=== PATIENT | male | born 1935 | race Caucasian/White ===

== ENCOUNTER 2018-05-08 11:22 | Inpatient (IN) ==
[2018-05-08] MEDS ORDERED: ceFAZolin 2 GM Premix Inj 2 GM/50 ML PIGGYBACK IV.SIG PRN (12:04)
[2018-05-08] MEDS ORDERED: Sodium Chloride 0.9% 2 ML Flush PRN IV.FLUSH (12:09)
[2018-05-08] MEDS ORDERED: Sodium Chlor 0.9% Inj 500 ML IV.CONT ONE (12:15)
[2018-05-08] MEDS ORDERED: Metoprolol Tartrate 25 MG Tablet PO ONE (12:15)
[2018-05-08] MEDS ORDERED: Chlorhexidine Gluconate 2% 1 Pack (2 Cloths) TOPICAL ONE (12:15)
[2018-05-08 12:30] LABS: INR 1.1 Ratio; Prothrombin Time 11.3 sec (9.8-11.6)
[2018-05-08] MEDS ORDERED: Phenylephrine/NS 1000 MCG/10ML Syringe IV.PUSH ONE (14:15)
[2018-05-08] MEDS ORDERED: Labetalol HCl Inj 100 MG/20 ML Vial IV.CONT ONE (14:15)
--- NOTE | 2018-05-08 15:11 | ECG ---
Date Performed: 05/08/2018 Time Performed: 12:33:25 PTAGE: 83 years EKG: ATRIAL FIBRILLATION WITH ABERRANT CONDUCTION OR VENTRICULAR PREMATURE COMPLEXES ANTERIOR MY OCARDIAL INFARCTION , PROBABLY OLD POSSIBLE INFERIOR MYOCARDIAL INFARCTION , PROBABLY OLD ABNORMAL EC G NO PREVIOUS TRACING DOCTOR: [place] Interpretating Date/Time 05/08/2018 15:09:06
[2018-05-08] MEDS ORDERED: fentaNYL Citrate Inj 100 MCG/2 ML Ampul ONE (18:59)
[2018-05-08] MEDS ORDERED: Sugammadex Inj 200 MG/2 ML Vial IV.PUSH ONE (19:00)
[2018-05-08] MEDS ORDERED: *morphine SULFATE 4 MG/ML PERIprocedure ONLY ONE ×2 (19:09→19:19)
[2018-05-08] MEDS: Pantoprazole Inj 40 MG Vial IV.PUSH SCH (19:11)
[2018-05-08 19:14] LABS: Baso # (Auto) 0.1 th/mm3 (0.0-0.2); Baso % (Auto) 0.4 % (0.0-2.0); Eos % (Auto) 0.2 % (0.0-4.0); Hematocrit 38.5 % (39.0-51.0); Hemoglobin 12.8 gm/dL (13.0-17.0); Lymph # (Auto) 0.7 th/mm3 (1.0-4.8); Lymph % (Auto) 4.3 % (9.0-44.0); Mean Corpuscular HGB Conc 33.3 % (32.0-36.0); Mean Corpuscular Hemoglobin 29.6 pg (27.0-34.0); Mean Corpuscular Volume 88.9 fL (80.0-100.0); Mean Platelet Volume 9.8 fL (7.0-11.0); Mono # (Auto) 1.2 th/mm3 (0.0-0.9); Mono % (Auto) 7.7 % (0.0-8.0); Neut # (Auto) 14.1 th/mm3 (1.8-7.7); Neut % (Auto) 87.4 % (16.0-70.0); Platelet Count 171 th/mm3 (150-450); Red Blood Count 4.33 mil/mm3 (4.50-5.90); Red Cell Distribution Width 13.9 % (11.6-17.2); White Blood Count 16.1 th/mm3 (4.0-11.0)
[2018-05-08] MEDS: Sodium Chlor 0.9% Inj 1,000 ML IV.SIG SCH (19:15)
[2018-05-08 19:26] LABS: Calcium 8.5 mg/dL (8.5-10.1); Carbon Dioxide 20.8 meq/L (21.0-32.0)
[2018-05-08] MEDS ORDERED: *Promethazine Inj 25 MG/ML Vial PERIprocedural use ONLY ONE (19:34)
[2018-05-08] MEDS: Docusate Sodium 100 MG Capsule PO SCH (20:58)
[2018-05-08] MEDS: Sodium Chloride 0.9% 2 ML Flush BID IV.FLUSH SCH (20:59)
[2018-05-08] MEDS: Morphine Inj 4 MG/ML Vial IV.PUSH PRN (22:57)
[2018-05-09] MEDS: Morphine Inj 4 MG/ML Vial IV.PUSH PRN (03:47)
[2018-05-09] MEDS: Sodium Chlor 0.9% Inj 1,000 ML IV.SIG SCH ×2 (04:33→18:56)
[2018-05-09 07:43] LABS: Hematocrit 36.6 % (39.0-51.0); Hemoglobin 12.4 gm/dL (13.0-17.0); Mean Corpuscular HGB Conc 33.9 % (32.0-36.0); Mean Corpuscular Hemoglobin 30.6 pg (27.0-34.0); Mean Corpuscular Volume 90.3 fL (80.0-100.0); Mean Platelet Volume 9.8 fL (7.0-11.0); Platelet Count 134 th/mm3 (150-450); Red Blood Count 4.06 mil/mm3 (4.50-5.90); White Blood Count 13.8 th/mm3 (4.0-11.0)
[2018-05-09 08:01] LABS: Calcium 8.1 mg/dL (8.5-10.1); Carbon Dioxide 22.4 meq/L (21.0-32.0); Potassium 4.9 meq/L (3.5-5.1)
[2018-05-09] MEDS: Docusate Sodium 100 MG Capsule PO SCH ×2 (08:39→20:58)
[2018-05-09] MEDS: Metoprolol Tartrate 25 MG Tablet PO SCH (08:39)
--- NOTE | 2018-05-09 11:01 | P.PNURO ---
Subjective Patient symptoms today: c/o incisional pain. Has not been OOB. Denies CP/SOB/F/C/N/V. Denies flatus. Tolerating some clears. Objective Vital Signs: Vital Signs 05/08/18 11:59 05/08/18 18:45 05/08/18 19:00 Temperature 97.4 F L 97.4 F L Pulse Rate 70 81 73 Respiratory Rate 18 16 22 Blood Pressure 189/92 H 88/51 L 144/70 H Pulse Oximetry 99 95 99 05/08/18 19:15 05/08/18 19:30 05/08/18 19:45 Temperature Pulse Rate 69 75 74 Respiratory Rate 20 18 16 Blood Pressure 154/62 H 138/81 157/67 H Pulse Oximetry 98 100 97 05/08/18 20:00 05/08/18 21:00 05/08/18 22:02 Temperature 98 F Pulse Rate 78 72 74 Respiratory Rate 16 Blood Pressure 124/77 Pulse Oximetry 05/09/18 00:00 05/09/18 01:00 05/09/18 02:00 Temperature 98.2 F Pulse Rate 90 88 83 Respiratory Rate 18 Blood Pressure 156/70 H Pulse Oximetry 05/09/18 03:00 05/09/18 04:00 05/09/18 05:00 Temperature 97.8 F Pulse Rate 85 86 84 Respiratory Rate 18 Blood Pressure 124/77 Pulse Oximetry 05/09/18 05:57 05/09/18 06:00 05/09/18 07:00 Temperature Pulse Rate 80 80 100 H Respiratory Rate Blood Pressure Pulse Oximetry 05/09/18 08:00 Temperature 98.2 F Pulse Rate Respiratory Rate 18 Blood Pressure 146/78 H Pulse Oximetry 98 Intake & Output 05/08/18 05/09/18 05/09/18 18:59 06:59 18:59 Intake Total 2550 / 2550 1855 / 1855 Output Total 250 / 250 475 / 475 Balance 2300 / 2300 1380 / 1380 Weight 77.4 kg 108.9 kg Intake: IV 1050 / 1050 1100 / 1100 LR 1000 mL Inj 1,000 ML @ 30 1000 / 1000 mls/hr IV.CONT .Q24H ONE Rx#: [id number] NS Inj 1,000 ML @ 125 mls/hr IV 1000 / 1000 .SIG .Q10H [facility] Rx#:[id number] Ancef 2 GM Premix Inj 2 gm In 50 / 50 50 ml @ 100 mls/hr IV.SIG PIPE FOREMAN PRN Rx#:[id number] Ancef Inj 1,000 MG In NS Inj 100 / 100 100 ML @ 200 mls/hr IV.SIG Q8H [facility] Rx#:[id number] Oral 480 / 480 Anesthesia Amount 1500 / 1500 275 / 275 Output: Urine 400 / 400 Stool 0 / 0 Estimated Blood Loss 100 / 100 Urine Amount (Catheter) 150 / 150 75 / 75 Indwelling Urethral Catheter 150 / 150 75 / 75 Other: Weight On Admission 77.4 kg Result Diagrams: 05/09/18 07:17 05/09/18 07:17 Medications and IVs: Active Medications Generic Name Dose Route Start Last Admin Trade Name Freq PRN Reason Stop Dose Admin Docusate Sodium 100 mg 05/08/18 21:00 05/09/18 08:39 Colace PO Not Given BID [facility] Cefazolin Sodium/Dextrose 2 gm in 50 mls @ 100 mls/hr 05/08/18 12:04 17:22 Ancef 2 Gm Premix Inj IV.SIG 05/12/18 12:03 Infused PIPE FOREMAN PRN Infusion ON-CALL Lactated Ringer's 1,000 mls @ 30 mls/hr 05/08/18 12:15 05/08/18 18:42 Lr 1000 Ml Inj IV.CONT 05/09/18 12:14 Infused .Q24H ONE Infusion Sodium Chloride 1,000 mls @ 125 mls/hr 05/08/18 18:00 05/09/18 04:33 Ns Inj IV.SIG 125 mls/hr .Q10H [facility] Administration Levothyroxine Sodium 37.5 mcg 05/09/18 06:00 05/09/18 05:17 Synthroid PO 37.5 mcg DAILY@0600 [facility] Administration Metoprolol Tartrate 25 mg 05/09/18 09:00 05/09/18 08:39 Lopressor PO 25 mg DAILY [facility] Administration Miscellaneous Information 1 each 05/08/18 18:47 Misc Nursing Information OTHER 05/09/18 18:46 UNSCH PRN SEE LABEL COMMENTS Morphine Sulfate 4 mg 05/08/18 17:56 05/09/18 03:47 Morphine Inj IV.PUSH 4 mg Q4H PRN Administration BREAKTHROUGH PAIN Nitroglycerin 1 patch 05/08/18 21:00 05/08/18 21:00 Nitro-Dur 0.1 Mg Patch.24 Hr T-DERMAL 1 patch HS [facility] Administration Ondansetron HCl 4 mg 05/08/18 17:58 05/08/18 22:57 Zofran Inj IV.PUSH 4 mg Q6H PRN Administration NAUSEA OR VOMITING Oxycodone/Acetaminophen 2 tab 05/08/18 17:55 Percocet 5/325 Mg PO Q4H PRN PAIN SCALE 6 TO 10 Oxycodone/Acetaminophen 1 tab 05/08/18 18:03 Percocet 5/325 Mg PO Q4H PRN PAIN SCALE 3 TO 5 Pantoprazole Sodium 40 mg 05/08/18 18:00 05/08/18 19:11 Protonix Inj IV.PUSH 40 mg Q24H [facility] Administration Pravastatin Sodium 40 mg 05/08/18 20:00 05/08/18 20:58 Pravachol PO 40 mg QPM [facility] Administration Sodium Chloride 2 ml 05/08/18 21:00 05/08/18 20:59 Ns Flush IV.FLUSH Not Given BID [facility] Sodium Chloride 2 ml 05/08/18 12:09 Ns Flush IV.FLUSH PRN PRN FLUSH AFTER USING IV ACCESS Objective Remarks: NAD. A/O x 3 CTAB RRR abd soft, appropriately tender. Inc c/d/i. Urine clear, yellow Ext NT. No edema. Assessment and Plan - Plan POD #1 Right Robotic Radical Nephrectomy -Doing well. -Hgb stable. Good UOP -OOB today. -d/c lee once ambulatory -GI/DVT prophylaxis -Labs in A.M. -Regular diet in A.M. -Plavix on hold.
[2018-05-09] MEDS: Sodium Chloride 0.9% 2 ML Flush BID IV.FLUSH SCH ×2 (13:15→20:58)
[2018-05-09] MEDS: Pantoprazole Inj 40 MG Vial IV.PUSH SCH (18:56)
[2018-05-10] MEDS: Sodium Chlor 0.9% Inj 1,000 ML IV.SIG SCH (03:15)
[2018-05-10 06:39] LABS: Hematocrit 35.8 % (39.0-51.0); Hemoglobin 12.1 gm/dL (13.0-17.0); Mean Corpuscular HGB Conc 33.7 % (32.0-36.0); Mean Corpuscular Hemoglobin 30.3 pg (27.0-34.0); Mean Corpuscular Volume 90.1 fL (80.0-100.0); Platelet Count 133 th/mm3 (150-450); Red Blood Count 3.98 mil/mm3 (4.50-5.90); White Blood Count 11.9 th/mm3 (4.0-11.0)
[2018-05-10 06:56] LABS: Calcium 8.5 mg/dL (8.5-10.1); Carbon Dioxide 21.7 meq/L (21.0-32.0); Potassium 4.3 meq/L (3.5-5.1)
[2018-05-10] MEDS: Docusate Sodium 100 MG Capsule PO SCH ×2 (08:06→12:58)
[2018-05-10] MEDS: Metoprolol Tartrate 25 MG Tablet PO SCH (08:06)
[2018-05-10] MEDS: Sodium Chloride 0.9% 2 ML Flush BID IV.FLUSH SCH (08:06)
[2018-05-10 08:41] VITALS: RESP 18
--- NOTE | 2018-05-10 09:41 | P.PNURO ---
Subjective Patient symptoms today: doing well. has minimal pain. voiding on own. ambulating. Tolerating regular diet. Denies CP/SOB. Wants to go home. Objective Vital Signs: Vital Signs 05/09/18 10:00 05/09/18 11:00 05/09/18 12:00 Temperature 98.3 F Pulse Rate 98 H 84 110 H Respiratory Rate 18 Blood Pressure 140/67 Pulse Oximetry 97 05/09/18 13:00 05/09/18 14:00 05/09/18 15:00 Temperature Pulse Rate 82 88 85 Respiratory Rate Blood Pressure Pulse Oximetry 05/09/18 16:00 05/09/18 17:00 05/09/18 18:00 Temperature 98.2 F Pulse Rate 88 92 H 95 H Respiratory Rate 18 Blood Pressure 175/82 H Pulse Oximetry 97 05/09/18 19:00 05/09/18 20:00 05/09/18 21:00 Temperature 97.6 F Pulse Rate 102 H 94 H 102 H Respiratory Rate 16 Blood Pressure 163/77 H Pulse Oximetry 92 L 05/09/18 22:00 05/09/18 23:00 05/10/18 00:00 Temperature 98 F Pulse Rate 98 H 98 H 104 H Respiratory Rate 18 Blood Pressure 169/93 H Pulse Oximetry 94 L 05/10/18 01:00 05/10/18 02:00 05/10/18 03:00 Temperature Pulse Rate 90 93 H 97 H Respiratory Rate Blood Pressure Pulse Oximetry 05/10/18 04:00 05/10/18 05:00 05/10/18 06:00 Temperature 97.9 F Pulse Rate 94 H 88 82 Respiratory Rate 20 Blood Pressure 123/68 Pulse Oximetry 95 05/10/18 07:00 05/10/18 08:00 05/10/18 09:00 Temperature 98.4 F Pulse Rate 102 H 84 88 Respiratory Rate 18 Blood Pressure 136/88 Pulse Oximetry 95 Intake & Output 05/09/18 05/10/18 05/10/18 18:59 06:59 18:59 Intake Total 1700 / 1700 1480 / 1480 Output Total 1565 / 1565 900 / 900 Balance 135 / 135 580 / 580 Weight 108.2 kg Intake: IV 1100 / 1100 1000 / 1000 NS Inj 1,000 ML @ 125 mls/hr IV 1000 / 1000 1000 / 1000 .SIG .Q10H [facility] Rx#:[id number] Oral 600 / 600 480 / 480 Output: Urine 315 / 315 900 / 900 Stool 0 / 0 Urine Amount (Catheter) 1250 / 1250 Indwelling Urethral Catheter 1250 / 1250 Other: # Voids 2 # Bowel Movements 0 0 Result Diagrams: 05/10/18 06:07 05/10/18 06:07 Medications and IVs: Active Medications Generic Name Dose Route Start Last Admin Trade Name Freq PRN Reason Stop Dose Admin Docusate Sodium 100 mg 05/08/18 21:00 05/10/18 08:06 Colace PO Not Given BID [facility] Cefazolin Sodium/Dextrose 2 gm in 50 mls @ 100 mls/hr 05/08/18 12:04 17:22 Ancef 2 Gm Premix Inj IV.SIG 05/12/18 12:03 Infused A CLASS LINEMAN PRN Infusion ON-CALL Sodium Chloride 1,000 mls @ 125 mls/hr 05/08/18 18:00 05/10/18 03:15 Ns Inj IV.SIG 125 mls/hr .Q10H [facility] Administration Levothyroxine Sodium 37.5 mcg 05/09/18 06:00 05/10/18 06:15 Synthroid PO 37.5 mcg DAILY@0600 [facility] Administration Metoprolol Tartrate 25 mg 05/09/18 09:00 05/10/18 08:06 Lopressor PO 25 mg DAILY [facility] Administration Morphine Sulfate 4 mg 05/08/18 17:56 05/09/18 03:47 Morphine Inj IV.PUSH 4 mg Q4H PRN Administration BREAKTHROUGH PAIN Nitroglycerin 1 patch 05/08/18 21:00 05/09/18 20:58 Nitro-Dur 0.1 Mg Patch.24 Hr T-DERMAL 1 patch HS [facility] Administration Ondansetron HCl 4 mg 05/08/18 17:58 05/09/18 22:38 Zofran Inj IV.PUSH 4 mg Q6H PRN Administration NAUSEA OR VOMITING Oxycodone/Acetaminophen 2 tab 05/08/18 17:55 05/09/18 22:38 Percocet 5/325 Mg PO 2 tab Q4H PRN Administration PAIN SCALE 6 TO 10 Oxycodone/Acetaminophen 1 tab 05/08/18 18:03 Percocet 5/325 Mg PO Q4H PRN PAIN SCALE 3 TO 5 Pantoprazole Sodium 40 mg 05/08/18 18:00 05/09/18 18:56 Protonix Inj IV.PUSH 40 mg Q24H [facility] Administration Pravastatin Sodium 40 mg 05/08/18 20:00 05/09/18 18:56 Pravachol PO 40 mg QPM [facility] Administration Sodium Chloride 2 ml 05/08/18 21:00 05/10/18 08:06 Ns Flush IV.FLUSH 2 ml BID [facility] Administration Sodium Chloride 2 ml 05/08/18 12:09 Ns Flush IV.FLUSH PRN PRN FLUSH AFTER USING IV ACCESS Objective Remarks: NAD. A/O x 3 CTAB RRR abd soft, appropriately tender. Inc c/d/i. Ext NT. No edema. Assessment and Plan - Plan POD #2 Right Robotic Radical Nephrectomy -Doing well. -Hgb stable. -Regular diet -Ambulate, IS. -likely home later today. -Restart Plavix 05/11/2018 -F/U in office 1 week.
[2018-05-10 12:32] VITALS: O2SAT 93
[2018-05-10 16:18] VITALS: BP 179/88; PULSE 116; TEMP 97.9
--- NOTE | 2018-05-12 13:47 | MP ---
cc: Leno Valladares MD DATE OF OPERATION: 05/08/2018 PREOPERATIVE DIAGNOSES: 1. A 6 cm solid right renal mass. 2. History of coronary artery disease, status post coronary artery bypass grafting. POSTOPERATIVE DIAGNOSES: 1. A 6 cm solid right renal mass. 2. History of coronary artery disease, status post coronary artery bypass grafting. PROCEDURE PERFORMED: Robotic-assisted laparoscopic right radical nephrectomy. SURGEON: Leno Valladares MD ANESTHESIA: General. COMPLICATIONS: None. PREOPERATIVE ANTIBIOTICS: Ancef 1 gram. SPECIMENS: Right kidney for permanent. ESTIMATED BLOOD LOSS: 100 mL. FLUIDS: 2500 of crystalloid per anesthesia. DISPOSITION: Stable to recovery. INDICATIONS: The patient is an 83-year-old man who was found to have a large 6 cm incidental right lower pole renal mass. Treatment options were discussed and he elected to proceed with right robotic partial, possible right radical nephrectomy. He did receive cardiac clearance and his Plavix has been on hold for 5 days. After the risks, benefits and alternatives were explained to the patient including the risk of renal failure, dialysis, loss of the entire kidney, the patient elected to proceed. Informed consent was obtained. DETAILS OF PROCEDURE: The patient was properly identified and brought back to the operating room and laid supine on the operating table. Appropriate timeout was performed. Under the direction of anesthesiology, the patient was intubated and induced under general anesthetic. Appropriate preoperative antibiotics were given within 1 hour of the start of procedure. The patient was then placed in the left lateral decubitus position with the right side and all pressure points were padded after a Chapman catheter was placed. The patient was then prepped and draped in normal sterile surgical fashion. A stab incision was made superior and lateral to the umbilicus. A Veress needle was used to gain access to the abdominal cavity. Pneumoperitoneum was then achieved. The stab incision was extended to approximately 2 cm. A 12 mm camera port was then placed under direct visualization into the intra-abdominal cavity. The abdominal cavity was carefully inspected. There was no evidence of intra-abdominal entry including bleeding. At this time, 4 other remaining ports were then placed under direct visualization, including two 8 mm robotic ports triangulated off the camera port, a 5 mm port in the midline just below the xiphoid process as well as a 12 mm mechanic's assistant port inferior to the umbilicus in the midline. Once all ports were placed, the robot was then brought into position. There were some minor adhesions to the anterior abdominal wall, which were taken down with blunt dissection and cold scissors. At this time, the colon was reflected medially by taking down the white line of Toldt, which exposed the retroperitoneum. Through careful dissection, I came across the duodenum. Due to this large renal mass, this area was very inflamed with a significant amount of parasitic vessels. These were controlled with bipolar electrocautery. I carefully kocherized the duodenum to expose the inferior vena cava. I followed the inferior cannula caudally until I found the gonadal vein inserting into the IVC. I carefully developed a plane between the gonadal vein and the IVC where the psoas muscle was identified. Through careful dissection, I then identified the ureter as well. I then carefully dissected up the psoas muscle off the IVC until I came across the renal hilum. Two renal arteries and 2 renal veins were identified including 1 renal artery directly posterior to the renal vein. It was in a quite difficult position. At this point, decided to see if a partial nephrectomy was feasible. I carefully started to remove the perinephric fat to expose the capsule of the kidney; however, the tumor was significantly enlarged and appeared to be invasive and encompassing a large part of and almost the lower half of the entire kidney. At this point, I did not feel like a partial nephrectomy was feasible due to potential blood loss and negative margins. Therefore, at this point, I decided to remove the whole kidney. At this time, I then was able to take the lower pole renal vein with an endovascular GI stapler; however, I was unable to significantly gain traction. Therefore, I had to ligate the right gonadal vein with the robotic vessel sealer. At this point, there remained 2 arteries and 1 vein. The lower pole artery was easy to access and was carefully dissected circumferentially and was taken to the endovascular GI stapler. The other renal artery was posterior to the vein and I could not see an adequate plane; however, I was able to dissect around both the artery and anterior to the vein and there was a small window. Therefore, I decided to take both the second artery and vein together and the endovascular JOAQUIN stapler was used to do this. At this point, the renal hilum was completely divided and there was no evidence of any bleeding. The lateral and superior attachments were then divided with a combination of blunt dissection and electrocautery. At this point, the ureter remained the only thing intact and this was divided with the robotic vessel sealer. At this point, the kidney was then placed in an EndoCatch bag for later removal. The adrenal bed and renal fossa were then irrigated out. Electrocautery was used for hemostasis. Then, 5 mL of Evicel was used for hemostatic purposes. The renal fossa and adrenal bed appeared to be dry. Pneumoperitoneum was dropped down to 7 mmHg and there was no evidence of any bleeding. The liver remained intact. At this point, the robot was then undocked. I then extracted the kidney through the right lower quadrant incision after extending the incision. That incision was then closed in 2 layers with 3-0 Vicryl for the peritoneum and 1-0 PDS for the fascia. A second look was then performed. There was no evidence of any obvious bleeding. The underside of the incision was free of bowel. All ports were removed under direct visualization. Sponge, needle and instrument counts were correct at the end of the case. All incisions were closed with Vicryl and 4-0 Monocryl and reinforced with Dermabond. This concluded the procedure. The patient was extubated and sent to recovery in stable condition. He will be transferred to the floor for routine postoperative care. We will start Plavix once he is hemodynamically stable. MD ORLY Patel/priscilla , 12:40 PM , 12:55 PM
== END 2018-05-10 17:51 | disposition home or self-care (01) ==
LOC: HSDI 11:22 → HCIS 20:22
PROVIDERS: ADMIT Urology; ATTEND Urology